=== PATIENT | female | born 1980 | race Two or more races ===

== ENCOUNTER 2017-03-08 22:29 | Emergency (ER) | payer SELFPAY ==
[2017-03-08 23:27] LABS: BILIRUBIN,URINE NEGATIVE (NEG); GLUCOSE,URINE NEGATIVE (NEG); NITRITE,URINE NEGATIVE (NEG); PH,URINE 7.5; PROTEIN,URINE NEGATIVE (NEG-TRACE); UROBILINOGEN,URINE 0.2 mg/dL (0.2 mg/dL)
--- NOTE | 2017-03-08 23:35 | PHYS DOC ---
Past Medical History Past Medical History: Kidney Stone Past Surgical History: Alcohol Use: None Drug Use: None Adult General Chief Complaint Chief Complaint: ABDOMINAL PAIN HPI HPI Patient is a 36 year old F who presents with left upper quadrant abdominal pain for the past 2 days. Patient states the pain got worse today with associated nausea and vomiting and therefore came the emergency room. Patient denies any diarrhea. Patient only previous abdominal surgeries with . Patient denies any chest pain or shortness of breath. Patient denies any fevers. Patient unable to keep any food down today. Patient has no other complaints. Review of Systems Review of Systems GEN: Denies fevers, chills, sweats HEENT: Denies blurred vision, sore throat CV: Denies chest pain RESP: Denies shortness of air, cough GI: n/v abdominal pain NEURO: Denies confusion, dizziness MSK: Denies weakness, joint pain/swelling Current Medications Current Medications Current Medications Medications (Trade) Dose Ordered Sig/[place] Start Time Stop Time Status Last Admin Dose Admin Fentanyl Citrate (Fentanyl 2ml Vial) 50 mcg 1X ONCE 03/08/17 23:45 03/08/17 23:46 DC 03/08/17 23:49 50 MCG Info (Do NOT chart on this entry -- for MONITORING) 1 each PRN DAILY PRN 03/09/17 00:00 03/11/17 00:00 Iohexol (Omnipaque 300 Mg/ml) 75 ml 1X ONCE 03/09/17 00:00 03/09/17 00:01 DC 03/09/17 00:48 75 ML Ketorolac Tromethamine (Toradol) 30 mg 1X ONCE 03/09/17 01:45 03/09/17 01:46 DC Ondansetron HCl (Zofran) 4 mg 1X ONCE 03/08/17 23:45 03/08/17 23:46 DC 03/08/17 23:48 4 MG Sodium Chloride 1,000 ml @ 1,000 mls/hr 1X ONCE 03/08/17 23:45 03/09/17 00:44 DC 03/08/17 23:48 1,000 MLS/HR Allergies Allergies Allergies Coded Allergies Type Severity Reaction Last Updated Verified No Known Drug Allergies 03/08/17 No Physical Exam Physical Exam GEN.: No apparent distress. Alert and oriented. HEENT: Head is normocephalic, atraumatic NECK: Supple. LUNGS: CTAB. HEART: RRR, S1, S2 present. Peripheral pulses intact ABDOMEN: Soft, left upper quadrant tenderness palpation, no rebound tenderness, no abdominal distention. Positive bowel sounds. EXTREMITIES: Without any cyanosis. NEUROLOGIC: Normal speech, normal tone PSYCHIATRIC: Normal affect, normal mood. SKIN: No ulcerations Current Patient Data Vital Signs Vital Signs Date Time Temp Pulse Resp B/P (MAP) Pulse Ox O2 Delivery O2 Flow Rate FiO2 03/09/17 01:03 98.6 102 20 152/81 (104) 99 Room Air 98.6 Lab Values Laboratory Tests Test 03/08/17 22:16 03/08/17 23:05 03/08/17 23:15 POC Urine HCG, Qualitative Hcg negative (Negative) Urine Collection Type Unknown Urine Color Yellow Urine Clarity Clear Urine pH 7.5 Urine Specific [place] 1.010 Urine Protein Negative mg/dL (NEG-TRACE) Urine Glucose (UA) Negative mg/dL (NEG) Urine Ketones (Stick) Negative mg/dL (NEG) Urine Blood Trace (NEG) Urine Nitrite Negative (NEG) Urine Bilirubin Negative (NEG) Urine Urobilinogen Dipstick 0.2 mg/dL (0.2 mg/dL) Urine Leukocyte Esterase Negative (NEG) Urine RBC Occ /HPF (0-2) Urine WBC 1-4 /HPF (0-4) Urine Squamous Epithelial Cells Few /LPF Urine Bacteria 0 /HPF (0-FEW) Urine Mucus Slight /LPF White Blood Count 10.0 x10^3/uL (4.0-11.0) Red Blood Count 4.68 x10^6/uL (3.50-5.40) Hemoglobin 14.4 g/dL (12.0-15.5) Hematocrit 41.1 % (36.0-47.0) Mean Corpuscular Volume 88 fL (79-100) Mean Corpuscular Hemoglobin 31 pg (25-35) Mean Corpuscular Hemoglobin Concent 35 g/dL (31-37) Red Cell Distribution Width 14.5 % (11.5-14.5) Platelet Count 297 x10^3/uL (140-400) Neutrophils (%) (Auto) 60 % (31-73) Lymphocytes (%) (Auto) 30 % (24-48) Monocytes (%) (Auto) 6 % (0-9) Eosinophils (%) (Auto) 3 % (0-3) Basophils (%) (Auto) 1 % (0-3) Neutrophils # (Auto) 6.0 x10^3uL (1.8-7.7) Lymphocytes # (Auto) 3.0 x10^3/uL (1.0-4.8) Monocytes # (Auto) 0.6 x10^3/uL (0.0-1.1) Eosinophils # (Auto) 0.3 x10^3/uL (0.0-0.7) Basophils # (Auto) 0.1 x10^3/uL (0.0-0.2) Sodium Level 141 mmol/L (136-145) Potassium Level 3.3 mmol/L (3.5-5.1) L Chloride Level 104 mmol/L (98-107) Carbon Dioxide Level 23 mmol/L (21-32) Anion Gap 14 (6-14) Blood Urea Nitrogen 5 mg/dL (7-20) L Creatinine 0.5 mg/dL (0.6-1.0) L Estimated GFR (Cockcroft-Gault) 139.6 BUN/Creatinine Ratio 10 (6-20) Glucose Level 168 mg/dL (70-99) H Calcium Level 8.9 mg/dL (8.5-10.1) Total Bilirubin 0.6 mg/dL (0.2-1.0) Aspartate Amino Transferase (AST) < 5 U/L (15-37) L Alanine Aminotransferase (ALT) 33 U/L (14-59) Alkaline Phosphatase 105 U/L (46-116) Total Protein 7.8 g/dL (6.4-8.2) Albumin 3.8 g/dL (3.4-5.0) Albumin/Globulin Ratio 1.0 (1.0-1.7) Lipase 133 U/L (73-393) Laboratory Tests 03/08/17 23:15 Laboratory Tests 03/08/17 23:15 EKG EKG [] Radiology/Procedures Radiology/Procedures CT scan abdomen pelvis: IMPRESSION: 1. No evidence of bowel obstruction, hydronephrosis or appendicitis. 2. Low-attenuation lesion in the spleen. Nonspecific appearance with some common causes including a small cyst or hemangioma unless the patient has history of neoplasm. 3. Low attenuation of the liver. Nonspecific but frequently secondary to fatty infiltration.[] Course & Med Decision Making Course & Med Decision Making Pertinent Labs and Imaging studies reviewed. (See chart for details) ED course: Patient was seen and examined emergency room abdominal workup was ordered along with a CT scan abdomen pelvis 0149: Patient was reevaluated in which she was doing better. Patient was updated on lab work and CT findings. It was recommended to the patient she follow up with PCP for the lesions found on her spleen and liver for further evaluation and management. Patient was comfortable being discharged home. MDM: After reviewing the chart, CC/HPI/PMH, physical exam, [lab results], [ radiological results], I do not believe the patient has intra-abdominal emergency warranting further workup and/or admission at this time. Patient is stable for discharge. Recommended patient follow-up with her PCP to further evaluate the lesions found on her spleen and liver. Additional verbal discharge instructions were provided to the patient and that if symptoms get worse or any new symptoms arise that are worrisome to the patient she is to return to the emergency room immediately [] Dragon Disclaimer Dragon Disclaimer This electronic medical record was generated, in whole or in part, using a voice recognition dictation system. Departure Departure Impression: Primary Impression: Abdominal pain Disposition: 01 HOME, SELF-CARE Condition: IMPROVED Referrals: NON,STAFF (PCP) Patient Instructions: Abdominal Pain (Nonspecific) Additional Instructions: Please follow up with your family physician in the next one to 2 days, please return if symptoms increase DUNG MCGOWAN DO Mar 08, 2017 23:35
[2017-03-08 23:36] LABS: BACTERIA,URINE 0 /HPF (0-FEW); RBC,URINE OCC /HPF (0-2); SQUAMOUS EPITHELIAL CELL,UR FEW /LPF
[2017-03-08 23:44] LABS: BASO # 0.1 x10^3/uL (0.0-0.2); BASO % 1 % (0-3); EOS % 3 % (0-3); HEMATOCRIT 41.1 % (36.0-47.0); HEMOGLOBIN 14.4 g/dL (12.0-15.5); LYMPH % 30 % (24-48); MEAN CORPUSCULAR HEMOGLOBIN 31 pg (25-35); MEAN CORPUSCULAR HGB CONC 35 g/dL (31-37); MEAN CORPUSCULAR VOLUME 88 fL (79-100); MONO % 6 % (0-9); NEUT % 60 % (31-73); PLATELET COUNT 297 x10^3/uL (140-400); RED BLOOD COUNT 4.68 x10^6/uL (3.50-5.40); RED CELL DISTRIBUTION WIDTH 14.5 % (11.5-14.5)
[2017-03-08] MEDS ORDERED: fentaNYL PF VIAL 100 MCG/2 ML VIAL IV ONE (23:45)
[2017-03-08] MEDS ORDERED: ONDANSETRON PF 4 MG/2 ML VIAL. IV ONE (23:45)
[2017-03-08] MEDS ORDERED: IV NORMAL SALINE 1000ML BAG 1,000 ML IV ONE (23:45)
[2017-03-08 23:58] LABS: ANION GAP 14 (6-14); BLOOD UREA NITROGEN 5 mg/dL (7-20); BUN/CREATININE RATIO 10 (6-20); CALCIUM 8.9 mg/dL (8.5-10.1); CARBON DIOXIDE 23 mmol/L (21-32); CHLORIDE 104 mmol/L (98-107); CREATININE 0.5 mg/dL (0.6-1.0); GFR 139.6; GLUCOSE 168 mg/dL (70-99); POTASSIUM 3.3 mmol/L (3.5-5.1); SODIUM 141 mmol/L (136-145)
[2017-03-09] MEDS ORDERED: IOHEXOL 300 MG/ML 75 ML VIAL IV ONE
[2017-03-09] MEDS ORDERED: CONTRAST GIVEN MC PRN
[2017-03-09 00:04] LABS: ALBUMIN 3.8 g/dL (3.4-5.0); ALK PHOS 105 U/L (46-116); ALT (SGPT) 33 U/L (14-59); AST (SGOT) < 5 U/L (15-37); TOTAL BILIRUBIN 0.6 mg/dL (0.2-1.0); TOTAL PROTEIN 7.8 g/dL (6.4-8.2)
--- NOTE | 2017-03-09 01:31 | RAD ---
INDICATION: LUQ PAIN X 2 DAYS NV INJ 75ML OMNI 300 NO PREV COMPARISON: None. TECHNIQUE: Axial CT images were obtained through the abdomen and pelvis with intravenous contrast. One or more of the following individualized dose reduction techniques were utilized for this examination: 1. Automated exposure control; 2. Adjustment of the mA and/or kV according to patient size; 3. Use of iterative reconstruction technique. FINDINGS: Chest Base: Mild probable atelectasis lung bases. Vessels: No abdominal aortic aneurysm. Liver/Biliary: Low-attenuation of liver adjacent to falciform ligament. Most commonly from focal fatty infiltration. Pancreas: No peripancreatic edema. Spleen: Approximately 1 cm low-attenuation lesion. Kidneys/Adrenal: No hydronephrosis. Bladder: No definite adjacent inflammation. GI: No free air. No bowel dilation to suggest obstruction. Appendix does not appear inflamed. Degenerative changes spine. IMPRESSION: 1. No evidence of bowel obstruction, hydronephrosis or appendicitis. 2. Low-attenuation lesion in the spleen. Nonspecific appearance with some common causes including a small cyst or hemangioma unless the patient has history of neoplasm. 3. Low attenuation of the liver. Nonspecific but frequently secondary to fatty infiltration. Electronically signed by: Ryan Mcleod MD (03/09/2017 1:27 AM) [id number]
[2017-03-09] MEDS ORDERED: KETOROLAC 30 MG/ML INJ. IV ONE (01:45)
[2017-03-09 01:49] VITALS: BP 132/72
== END 2017-03-09 02:09 | disposition home or self-care (01) ==
LOC: ER 22:29
DX: R10.12 Left upper quadrant pain (principal); R11.2 Nausea with vomiting, unspecified; Z87.442 Personal history of urinary calculi
CPT/HCPCS: 36415; 74177; 80053; 81001; 81025; 83690; 85025; 96361; 96374; 96375; 99285; J1885; J2405; J3010; J7030; Q9967